=== PATIENT | male | born 1960 | race Caucasian/White ===

== ENCOUNTER 2019-07-13 09:19 | Inpatient (IN) | payer OTHER ==
[~2019-07-13] VITALS: Ht 188 cm; Wt 85.1 kg
[2019-07-13 10:03] LABS: BASOPHILS # (AUTO) 0.01 x10^3/uL (0-0.1); BASOPHILS % (AUTO) 0 % (0-1); EOSINOPHILS % (AUTO) 1 % (1-7); LYMPHOCYTES # (AUTO) 0.68 x10^3/uL (1-3.4); LYMPHOCYTES % (AUTO) 8 % (22-44); MD NO; MEAN CORPUSCULAR HEMOGLOBIN 30.6 pg (27.5-34.5); MEAN CORPUSCULAR HGB CONC 33.5 g/dL (33.2-36.2); MEAN CORPUSCULAR VOLUME 91.3 fL (81-97); MEAN PLATELET VOLUME 6.8 fL (7.4-10.4); MONOCYTES # (AUTO) 0.49 x10^3/uL (0.2-0.8); MONOCYTES % (AUTO) 6 % (2-9); NEUTROPHILS # (AUTO) 7.12 x10^3/uL (1.8-6.8); NEUTROPHILS % (AUTO) 85 % (42-75); PLATELET COUNT 204 x10^3/uL (130-400); RED BLOOD COUNT 4.36 x10^6/uL (4.38-5.82); RED CELL DISTRIBUTION WIDTH 13.1 % (9.4-14.8)
[2019-07-13 10:13] LABS: ALBUMIN 2.8 g/dL (3.4-5.0); ANION GAP 3 mmol/L (5-15); CALCIUM 8.8 mg/dL (8.5-10.1); CHLORIDE 112 mmol/L (98-107); CREATININE 1.14 mg/dL (0.7-1.3)
--- NOTE | 2019-07-13 10:16 | NUR ---
TASK RN: 58 Y/O MALE PRESENTS TO ED WITH C/O ABDOMINAL PAIN. PER PT "I'VE HAD SOME ABDOMINAL PAIN ON THE LEFT SIDE FOR ABOUT A WEEK. I WAS GOING TO CALL MY PCP, BUT IT WAS THE WEEKEND." NO C/O N/V/D, TRAUMA, SYNCOPE, CP, SOB. PT PLACED ON CONT PULSE OX,NIBP. PIV ESTABLISHED. PT TOLERATED WITH NO COMPLICATIONS.
[2019-07-13] MEDS ORDERED: SODIUM CHLORIDE FLUSH 10ML SYR IVF ONE (10:30)
--- NOTE | 2019-07-13 10:33 | NUR ---
TASK RN: PT AMBULATORY WITH STEADY GAIT TO BATHROOM.
--- NOTE | 2019-07-13 10:45 | NUR ---
UA SENT TO LAB.
[2019-07-13 10:52] LABS: MICROSCOPIC NOT IND
[2019-07-13 10:53] LABS: CULTURE INDICATED? NO
--- NOTE | 2019-07-13 10:56 | NUR ---
TASK RN: PT BACK FROM IMAGING.
[2019-07-13] MEDS ORDERED: OMNIPAQUE 350 MG/ML, 100ML BOTTLE ONE (10:58)
[2019-07-13] MEDS ORDERED: CEFTRIAXONE PMX 1GM/50ML 50 ML IV ONE (11:30)
[2019-07-13] MEDS ORDERED: METRONIDAZOLE PMX 500MG/100ML 100 ML IV ONE (11:30)
--- NOTE | 2019-07-13 11:33 | NUR ---
BEDSIDE REPORT TO [facility] NEUMANN. PT NPO (ICE CHIPS OK) D/T IMAGING RESULTS. TAD.
--- NOTE | 2019-07-13 12:03 | NUR ---
PT RECLINED IN BED WATCHING TELEVISION. NAD NOTED AT THIS TIME. PT AWAITING ADMIT TO SURGICAL. RESPIRATIONS EVEN AND UNLABORED ON RA. SIDE RAIL UP, CALL LIGHT IN REACH. MED REC. UNDERWAY.
[2019-07-13] MEDS ORDERED: SERT100T PO (12:10)
[2019-07-13] MEDS ORDERED: FINA5TAB4 PO (12:10)
[2019-07-13] MEDS ORDERED: DICL75TA3 PO (12:10)
[2019-07-13] MEDS ORDERED: TAMS-11 PO (12:10)
[2019-07-13] MEDS ORDERED: MAGN400T36 PO (12:10)
[2019-07-13] MEDS ORDERED: CETI10CA PO (12:10)
[2019-07-13] MEDS ORDERED: CALC1CAP8 PO (12:10)
[2019-07-13] MEDS ORDERED: [UNRECOGNIZED DRUG - REMARK] PO (12:10)
[2019-07-13] MEDS ORDERED: ARIP10TA33 PO (12:10)
[2019-07-13] MEDS ORDERED: CEFTRIAXONE PMX 1GM/50ML 50 ML ONE (12:42)
--- NOTE | 2019-07-13 12:53 | NUR ---
THIS RN SPOKE WITH MD MATUTE WHO STATES BLOOD CX ARE NOT INDICATED PRIOR TO IV ABX ADMIN. PT IS UP TO BATHROOM AT THIS TIME, GAIT STEADY.
[2019-07-13] MEDS ORDERED: IBUPROFEN 600 MG TABLET PO PRN (13:00)
[2019-07-13] MEDS ORDERED: KETOROLAC 30 MG/1 ML IV PRN (13:00)
[2019-07-13] MEDS ORDERED: ENALAPRILAT 1.25 MG/ML, 2ML IVPush PRN (13:00)
[2019-07-13] MEDS ORDERED: LABETALOL 5MG/ML, 20ML IVPush PRN (13:00)
[2019-07-13] MEDS ORDERED: ACETAMINOPHEN 325 MG TABLET PO PRN (13:00)
[2019-07-13] MEDS ORDERED: POLYETHYLENE GLYCOL 17 GM PACKET PO PRN (13:00)
[2019-07-13] MEDS ORDERED: DOCUSATE 100 MG CAPSULE PO PRN (13:00)
[2019-07-13] MEDS ORDERED: ONDANSETRON 2MG/ML, 2ML IVPush PRN (13:00)
--- NOTE | 2019-07-13 13:11 | NUR ---
THIS RN CLARIFIED WITH MD LANE, PT REPORTS ANAPHYLACTIC RXN TO MD MARIAM STATES ROCEPHIN IS SAFE TO ADMIN. ROCEPHIN INITIATED, PT TOLERATING WELL. PT STATES PAIN IS TOLERABLE AT THIS TIME, DENIES ANY NEEDS. PT A&O, RESPS EVEN AND UNLABORED, NADN. REPORT CALLED TO [facility], PT AWAITING TRANSPORT TO SURGICAL FLOOR AT THIS TIME.
[2019-07-13 13:30] VITALS: BP 117/78
[2019-07-13] MEDS ORDERED: KETOROLAC 30 MG/1 ML ONE (13:43)
[2019-07-13] MEDS: morphine SULFATE 10 MG/ML, 1ML IVPush PRN ×2 (13:55→17:18)
[2019-07-13] MEDS ORDERED: ONDANSETRON 4 MG TABLET PO PRN (14:00)
[2019-07-13 14:08] VITALS: BP 117/78
[2019-07-13] MEDS: D5%-0.9% NACL 1,000 ML IV SCH ×2 (15:30→23:38)
[2019-07-13 20:04] VITALS: BP 97/56
[2019-07-13] MEDS ORDERED: DICLOFENAC SODIUM 75 MG TABLET.DR PO SCH (21:00)
[2019-07-13] MEDS: ENOXAPARIN 40 MG/0.4 ML SQ SCH (21:00)
[2019-07-13] MEDS: MAGNESIUM OXIDE 400 MG TABLET PO SCH (21:37)
[2019-07-13] MEDS: METRONIDAZOLE PMX 500MG/100ML 100 ML IV SCH (23:38)
[2019-07-14 01:15] VITALS: BP 100/61
[2019-07-14 05:44] LABS: BASOPHILS # (AUTO) 0.03 x10^3/uL (0-0.1); BASOPHILS % (AUTO) 0 % (0-1); EOSINOPHILS # (AUTO) 0.14 x10^3/uL (0-0.4); EOSINOPHILS % (AUTO) 2 % (1-7); LYMPHOCYTES # (AUTO) 0.65 x10^3/uL (1-3.4); LYMPHOCYTES % (AUTO) 8 % (22-44); MD NO; MEAN CORPUSCULAR HEMOGLOBIN 30.3 pg (27.5-34.5); MEAN CORPUSCULAR HGB CONC 32.8 g/dL (33.2-36.2); MEAN CORPUSCULAR VOLUME 92.6 fL (81-97); MEAN PLATELET VOLUME 6.8 fL (7.4-10.4); MONOCYTES # (AUTO) 0.61 x10^3/uL (0.2-0.8); MONOCYTES % (AUTO) 7 % (2-9); NEUTROPHILS # (AUTO) 7.04 x10^3/uL (1.8-6.8); NEUTROPHILS % (AUTO) 83 % (42-75); PLATELET COUNT 197 x10^3/uL (130-400); RED BLOOD COUNT 3.92 x10^6/uL (4.38-5.82); RED CELL DISTRIBUTION WIDTH 13.3 % (9.4-14.8)
[2019-07-14 05:59] LABS: CHLORIDE 111 mmol/L (98-107)
[2019-07-14 06:10] LABS: ANION GAP 4 mmol/L (5-15); CALCIUM 8.2 mg/dL (8.5-10.1); CREATININE 0.97 mg/dL (0.7-1.3)
[2019-07-14 06:23] VITALS: BP 105/67
[2019-07-14] MEDS: D5%-0.9% NACL 1,000 ML IV SCH ×2 (07:58→18:14)
[2019-07-14] MEDS: METRONIDAZOLE PMX 500MG/100ML 100 ML IV SCH ×3 (07:58→23:59)
[2019-07-14] MEDS: MAGNESIUM OXIDE 400 MG TABLET PO SCH ×2 (09:00→21:24)
[2019-07-14] MEDS: SERTRALINE 100MG TABLET PO SCH (09:00)
[2019-07-14] MEDS: CETIRIZINE 10 MG TABLET PO SCH (09:00)
[2019-07-14] MEDS ORDERED: SERTRALINE 100MG TABLET PO SCH (09:00)
[2019-07-14] MEDS: SENNA/DOCUSATE TABLET PO SCH (09:00)
[2019-07-14] MEDS: ARIPIPRAZOLE 10 MG TABLET PO SCH ×2 (09:00)
[2019-07-14] MEDS: FINASTERIDE 5 MG TABLET PO SCH (09:00)
[2019-07-14] MEDS: TAMSULOSIN 0.4 MG CAP.ER.24H PO SCH (09:00)
[2019-07-14] MEDS: morphine SULFATE 10 MG/ML, 1ML IVPush PRN (09:07)
[2019-07-14 09:58] LABS: ALBUMIN 2.5 g/dL (3.4-5.0); BILIRUBIN, DIRECT 0.2 mg/dL (0.1-0.2)
[2019-07-14 10:00] LABS: BILIRUBIN,TOTAL 0.5 mg/dL (0.2-1.0); TOTAL PROTEIN 5.9 g/dL (6.4-8.2)
[2019-07-14 10:05] LABS: BILIRUBIN,INDIRECT 0.3 mg/dL (0.0-2.0)
[2019-07-14] MEDS ORDERED: OXYcodone IR 5MG TABLET PO PRN (11:30)
[2019-07-14] MEDS ORDERED: CEFTRIAXONE PMX 2GM/50ML 50 ML IV SCH (11:30)
[2019-07-14 12:25] VITALS: BP 99/62
[2019-07-14 19:14] VITALS: BP 98/60
[2019-07-14] MEDS: ENOXAPARIN 40 MG/0.4 ML SQ SCH (21:25)
[2019-07-15] MEDS: D5%-0.9% NACL 1,000 ML IV SCH ×2 (01:07→07:25)
[2019-07-15 01:15] VITALS: BP 109/71
[2019-07-15 04:42] LABS: BASOPHILS # (AUTO) 0.01 x10^3/uL (0-0.1); BASOPHILS % (AUTO) 0 % (0-1); EOSINOPHILS # (AUTO) 0.09 x10^3/uL (0-0.4); EOSINOPHILS % (AUTO) 1 % (1-7); LYMPHOCYTES # (AUTO) 0.83 x10^3/uL (1-3.4); LYMPHOCYTES % (AUTO) 10 % (22-44); MD NO; MEAN CORPUSCULAR HEMOGLOBIN 30.6 pg (27.5-34.5); MEAN CORPUSCULAR HGB CONC 33.7 g/dL (33.2-36.2); MEAN CORPUSCULAR VOLUME 90.8 fL (81-97); MEAN PLATELET VOLUME 6.5 fL (7.4-10.4); MONOCYTES # (AUTO) 0.69 x10^3/uL (0.2-0.8); MONOCYTES % (AUTO) 8 % (2-9); NEUTROPHILS # (AUTO) 6.96 x10^3/uL (1.8-6.8); NEUTROPHILS % (AUTO) 81 % (42-75); PLATELET COUNT 204 x10^3/uL (130-400); RED BLOOD COUNT 3.76 x10^6/uL (4.38-5.82)
[2019-07-15 07:16] VITALS: BP 105/65
[2019-07-15] MEDS: METRONIDAZOLE PMX 500MG/100ML 100 ML IV SCH ×2 (07:25→15:48)
[2019-07-15] MEDS ORDERED: CEFDINIR 300 MG CAPSULE PO SCH (08:00)
[2019-07-15] MEDS: SERTRALINE 100MG TABLET PO SCH (08:13)
[2019-07-15] MEDS: ARIPIPRAZOLE 10 MG TABLET PO SCH ×2 (08:13→08:17)
[2019-07-15] MEDS: FINASTERIDE 5 MG TABLET PO SCH (08:13)
[2019-07-15] MEDS: SENNA/DOCUSATE TABLET PO SCH (08:13)
[2019-07-15] MEDS: CETIRIZINE 10 MG TABLET PO SCH (08:13)
[2019-07-15] MEDS: TAMSULOSIN 0.4 MG CAP.ER.24H PO SCH (08:14)
[2019-07-15] MEDS: MAGNESIUM OXIDE 400 MG TABLET PO SCH (08:14)
[2019-07-15] MEDS ORDERED: OXYC5TAB3 PO (08:59)
[2019-07-15] MEDS ORDERED: CEFD300C37 PO (08:59)
[2019-07-15] MEDS ORDERED: METR250T18 PO (08:59)
[2019-07-15 13:35] VITALS: BP 117/78
[2019-07-15] MEDS ORDERED: metroNIDAZOLE 500 MG TABLET PO SCH (16:00)
[2019-07-15 18:44] VITALS: BP 105/68
== END 2019-07-15 19:30 | disposition home or self-care (01) | DRG 372 ==
LOC: ED 12:10 → EDIP 12:11 → ED 12:18 → 4NE 13:22
PROVIDERS: ADMIT Family Medicine; ATTEND Family Medicine
DX: K35.33 Acute appendicitis with perforation, localized peritonitis, and gangrene, with abscess (principal); K76.6 Portal hypertension; R65.10 Systemic inflammatory response syndrome (SIRS) of non-infectious origin without acute organ dysfunction; N13.30 Unspecified hydronephrosis; D64.9 Anemia, unspecified; E11.9 Type 2 diabetes mellitus without complications; E88.09 Other disorders of plasma-protein metabolism, not elsewhere classified; I25.10 Atherosclerotic heart disease of native coronary artery without angina pectoris; I50.9 Heart failure, unspecified; K59.00 Constipation, unspecified; N40.1 Benign prostatic hyperplasia with lower urinary tract symptoms; J30.2 Other seasonal allergic rhinitis; K38.1 Appendicular concretions; R16.2 Hepatomegaly with splenomegaly, not elsewhere classified; F31.9 Bipolar disorder, unspecified; Z88.0 Allergy status to penicillin; Z87.891 Personal history of nicotine dependence
CPT/HCPCS: 36415; 96365; 99285; J7042; 74177; 80048; 80076; 81003; 82040; 83690; 85025; G0378; J0696; J1650; J1885; Q9967; J2270